=== PATIENT | female | born 1950 | race Caucasian/White ===

== ENCOUNTER 2019-11-24 19:26 | Inpatient (IN) | payer OTHER ==
[~2019-11-24] VITALS: Ht 162.6 cm; Wt 65.7 kg
[2019-11-24 19:26] VITALS: BP 99/42
[~2019-11-24 19:26] MED LIST: AVELOX400 MG PO; COLACE100 MG; DEPAKOTE500 MG; DESYREL50 MG; FLOVENT DISKUS50 MCG; HYPOTEARS EYE D15 ML; K-DUR 20 MEQ T20 MEQ; MAG-OX 400 TAB400 M1; MEDROL DOSPAK21 TA1; MONTELUKAST SOD10 MG; MUCUS RELIEF600 MG; NAMENDA 10 MG T10 MG; PREMARIN0.9 MG; QUETIAPINE FUM100 MG; QUETIAPINE FUM300 MG; RANITIDINE 150150 M1; SERTRALINE HCL100 MG PO; SMOOTHLAX17 GM; VICODIN 5-5001 EACH; ZYRTEC10 M2; [UNRECOGNIZED DRUG - OTHER]
[2019-11-24 20:03] LABS: MCH 34.9 pg (26.0-34.0); RBC 2.82 mil/uL (4.20-5.00)
[2019-11-24 20:04] LABS: CALCIUM 8.2 mg/dL (8.5-10.1); HEMATOCRIT 29.4 % (37.0-47.0); HEMOGLOBIN 9.9 gm/dL (12.0-15.0); MCHC 33.5 g/dL (28.0-37.0); MCV 104.2 fL (80.0-100.0); POTASSIUM 3.5 mmol/L (3.5-5.1); RDW 13.3 % (10.5-14.5); WBC 5.1 thou/uL (4.0-11.0)
[2019-11-24 20:10] LABS: ALBUMIN 2.2 g/dL (3.4-5.0); TOTAL BILIRUBIN 0.4 mg/dL (<0.1-1.0); TOTAL PROTEIN 6.5 g/dL (6.4-8.2)
[2019-11-24] MEDS ORDERED: FLOMAX0.4 MG PO (20:13)
[2019-11-24] MEDS ORDERED: XARELTO10 M1 PO (20:13)
[2019-11-24] MEDS ORDERED: FUROSEMIDE 20 M20 MG PO (20:13)
[2019-11-24] MEDS ORDERED: MILK OF MA400 MG/5 M PO (20:14)
[2019-11-24] MEDS ORDERED: TESSALON PERLE100 M1 PO (20:14)
[2019-11-24] MEDS ORDERED: ULTRAM 50MG TAB50 MG PO (20:14)
[2019-11-24] MEDS ORDERED: ONDANSETRON ODT4 MG PO (20:15)
[2019-11-24 20:41] LABS: ANISOCYTOSIS 1+; MACROCYTES 1+; POIKILOCYTOSIS 1+
[2019-11-24 20:42] LABS: PLATELET COUNT 36 thou/uL (150-400); PLATELET ESTIMATE MARKEDLY DECREASED
[2019-11-24 21:34] LABS: URINE BILIRUBIN NEGATIVE (Negative); URINE BLOOD TRACE (Negative); URINE CLARITY CLEAR; URINE COLOR YELLOW; URINE GLUCOSE-RANDOM* NEGATIVE (Negative); URINE KETONES NEGATIVE (Negative); URINE PROTEIN (DIPSTICK) TRACE (Negative)
[2019-11-24 21:37] LABS: URINE LEUKOCYTES-REFLEX 1+ (Negative); URINE NITRITE-REFLEX POSITIVE (Negative)
[2019-11-24 21:41] LABS: BE(vivo) 0.6 mmol/L (-2 to +3); HCO3 25.9 mmol/L (22.0-26.0); PCO2 44.4 mmHg (35.0-45.0); PO2 69.3 mmHg (80.0-100.0); pH 7.383 (7.360-7.450); sO2 93.6 % (92.0-98.0)
[2019-11-24 22:03] LABS: BACTERIA-REFLEX >30 Many /HPF (None Seen); CASTS None Seen /LPF (None Seen); CRYSTALS None Seen /LPF (None Seen); SQUAMOUS 0-3 Few /LPF (0-3); TRANSITIONAL EPITHEL CELL 0-3 Few /LPF (None Seen); URINE RBC 0-2 Rare /HPF (0-2); URINE WBC-REFLEX 6-15 Few /HPF (0-5)
[2019-11-24 23:06] VITALS: BP 100/53
[2019-11-24 23:31] VITALS: BP 103/60
[2019-11-24] MEDS ORDERED: SEROQUEL XR 30300 M1 PO (23:40)
[2019-11-25 04:56] VITALS: BP 90/47
[2019-11-25 05:33] LABS: HEMATOCRIT 30.5 % (37.0-47.0); RBC 2.85 mil/uL (4.20-5.00)
[2019-11-25 05:34] LABS: HEMOGLOBIN 9.9 gm/dL (12.0-15.0); MCHC 32.6 g/dL (28.0-37.0); MCV 107.3 fL (80.0-100.0); RDW 13.7 % (10.5-14.5); WBC 4.7 thou/uL (4.0-11.0)
[2019-11-25 06:01] LABS: CALCIUM 7.9 mg/dL (8.5-10.1); CREATININE 0.8 mg/dL (0.6-1.0); POTASSIUM 3.5 mmol/L (3.5-5.1)
--- NOTE | 2019-11-25 06:09 | NUR ---
PATIENTS CARES WERE ASSUMED ON ARRIVAL FROM THE ED. PATIENT WAS ASSESSED AND MEDS WERE PASSED. PATIENT IS POSITIVE FOR INFLUENZA A AND IS IN DROPPLET PRECAUTION. PATIENT WAS ADMITTED AND MED REC CHECKED. HOURLY ROUNDS WERE DONE. THE BED IS IN A LOW AND LOCKED POSITION
--- NOTE | 2019-11-25 08:21 | EKG ---
[facility] [address] [place] [address] ELECTROCARDIOGRAM REPORT Name: TONY SCHWARTZ Room #: 216-P ADM IN M.R.#: [id number] Admission: 11/24/19 Attend Phys: Manuel Steward MD Discharge: Date of : 54 Report #: [id number] THIS REPORT FOR: cc: Rob Boles MD, Srinath MD Couchonnal, Luis F. MD ~ THIS REPORT FOR: //name// [facility] ED Test Date: 2019-11-24 Test Time: 19:31:54 Pat Name: TONY SCHWARTZ Department: Room: 216 Gender: F [employer] Manager: TSERING : 1950 Requested By: Raulito Armstrong Order Number: [id number] MD: Joseph Valero Measurements Intervals [place] Rate: 81 P: 61 WV: 120 QRS: 62 QRSD: 108 T: 38 QT: 490 QTc: 569 Interpretive Statements Sinus rhythm Low voltage, extremity leads Compared to ECG 07/12/2012 21:31:37 Low QRS voltage now present Sinus tachycardia no longer present Electronically Signed On 11-25-2019 8:20:05 TOMATO GRADER by Joseph Valero [email or web address] <ELECTRONICALLY SIGNED> By: Joseph Valero MD 11/25/19819 30 30 Joseph Valero MD /EPI
[2019-11-25 08:50] VITALS: BP 84/45
[2019-11-25 12:19] VITALS: BP 82/39
[2019-11-25 16:14] VITALS: BP 107/46
--- NOTE | 2019-11-25 17:53 | NUR ---
ASSUMED CARE AT SHIFT CHANGE, ALERT AND ORIENTED X4. BP 82-107/39-46 DR COPPOLA NOTIFIED AND NEW ORDERS RECEIVED. PRESSURE ULCER ON SACRUM, AND ABRASIONS ON LT LEG AND LT ELBOW, PICTURES TAKEN AND WOUND CARE CONSULTED. Q2 POSITONED FOR COMFORT AND NEEDED. AND WILL CONTINUE WITH POC.
[2019-11-25 19:48] VITALS: BP 91/42
[2019-11-26 01:07] VITALS: BP 90/44
[2019-11-26 03:29] VITALS: BP 98/49
--- NOTE | 2019-11-26 05:33 | NUR ---
PATIENTS CARES WERE ASSUMED AT SHIFT CHANGE. PATIENT WAS ASSESSED AND MEDS WERE PASSED. PATIENT WAS WASHED UP FOR BED. EXTERNAL CATH IS IN PLACE. HOURLY ROUNDS WERE DONE. THE BED IS IN A LOW AND LOCKED POSITION. THE BED ALARM IS ON
[2019-11-26 08:19] VITALS: BP 96/43
--- NOTE | 2019-11-26 10:07 | NUR ---
met with patient who is A/O she reports she resides at [facility]. She is in droplet precations for flu. Plan return to [facility]. [place] sales planner to update facility. Attempted to call hayes Hunt but voicemail not set up, left message with hayes Lopez.
[2019-11-26 11:05] VITALS: BP 119/61
--- NOTE | 2019-11-26 11:31 | HC ---
[facility] [address] [place] [address] CONSULTATION Name: TONY SCHWARTZ Room #: 216-P ADM IN M.R.#: [id number] Admission: 11/24/19 Attend Phys: Manuel Steward MD Discharge: Date of : 54 Report #: [id number] THIS REPORT FOR: cc: Rob Boles MD,Rob Blankenship,Phill Kelley MD ~ CC: Manuel Boles DATE OF SERVICE: 11/25/2019 CHIEF COMPLAINT: Sacral pressure ulceration. HISTORY OF PRESENT ILLNESS: This is a 69-year-old female patient with a history of dementia and COPD, who presented here from the [facility] for fever and acute mental status changes. She apparently also developed ulceration on her sacral region. I have been asked to see her with regard to wound care. The patient denies any specific pain or discomfort at this time. The patient cannot provide much information about herself. She is found to be positive for influenza A. PAST MEDICAL HISTORY: Positive for dementia, GERD, hypertension, anxiety, insomnia, depression, constipation, previous cholecystectomy, hyperlipidemia, hysterectomy, COPD, RAYSHAWN, schizophrenia, left femur fracture, cognitive communication deficits, hypothyroidism, hypokalemia, allergic rhinitis. SOCIAL HISTORY: Negative for alcohol or tobacco use. FAMILY HISTORY: Noncontributory. ALLERGIES: MORPHINE, PENICILLIN AND SULFA. MEDICATIONS: Include sertraline, quetiapine, divalproex, fluticasone, guaifenesin, magnesium oxide, memantine, cetirizine, docusate sodium, montelukast, polyethylene glycol, ranitidine, furosemide, Xarelto, tamsulosin, tramadol, Tessalon Perles, milk of magnesia, Zofran. REVIEW OF SYSTEMS: Not obtainable due to the patient's advanced dementia. PHYSICAL EXAMINATION: VITAL SIGNS: At this time include temperature 36.7, pulse 83, respiratory rate 20, blood pressure 107/46. GENERAL: This is a chronically ill-appearing female patient who appears to be in no distress. HEENT: Head normocephalic. Nose and throat are clear. NECK: Supple. [facility] [address] [place] [address] CONSULTATION Name: TONY SCHWARTZ Room #: 216-P ADM IN .R.#: [id number] Admission: 11/24/19 Attend Phys: Manuel Steward MD Discharge: Date of : 54 Report #: [id number] LUNGS: Diminished. HEART: Regular rate and rhythm. ABDOMEN: Soft, bowel sounds present. EXTREMITIES: The sacral region demonstrates stage 2 ulceration to the sacral gluteal region. No exposed deep structures. No infection noted. Lower extremities without clubbing or cyanosis. NEUROLOGIC: She is confused. She does have a symmetrical motor exam. LABORATORY DATA: Includes white blood cell count 4.7, hemoglobin 9.9. Sodium 142, potassium 3.5, chloride 106, CO2 of 29, BUN 13, creatinine 0.8, glucose of 69. Albumin is very low at 2.2. CLINICAL IMPRESSION: 1. Stage 2 sacral pressure ulceration. 2. Influenza A with hypoxia. 3. Urinary tract infection/sepsis. 4. Dementia. 5. Hypertension. 6. Chronic obstructive pulmonary disease. 7. Severe protein-calorie malnutrition. RECOMMENDATIONS: At this point in time, patient will be placed on low air loss mattress with q. 2 hour turning and positioning. Recommend zinc oxide barrier cream to the sacral region. She will continue current medications, will need ongoing nutritional support. I appreciate being asked to see her in consultation. <ELECTRONICALLY SIGNED> By: Phill Blankenship MD 11/26/19 1131 [id number] Phill Blankenship MD /nt
--- NOTE | 2019-11-26 14:41 | NUR ---
FAXED CLINICAL UPDATE TO [facility] SPOKE WITH NICOLE IN ADM SHE RECEIVED UPDATE. DP TO FOLLOW.
[2019-11-26 17:19] VITALS: BP 141/90
--- NOTE | 2019-11-26 19:52 | NUR ---
ASSUMED CARE AT SHIFT CHANGE, VSS AND AFEBRILE. PATINT STATED THAT SHE FEELS BETTER TODAY, AND PROGRESSING TOWARDS GOAL. Q2 POSITIONED FOR COMFORT AND NEEDED. AND WILL CONTINUE WITH POC.
[2019-11-26 20:30] VITALS: BP 117/58
--- NOTE | 2019-11-27 05:37 | NUR ---
PT TRANSFER FROM CCU. LYING IN BED. DENIES PAIN. RESTING COMFORTABLY. NO NEEDS VOICED. CALL LIGHT WITHIN REACH. FREQUENT OBSERVATION.
[2019-11-27 07:32] VITALS: BP 131/61
[2019-11-27] MEDS ORDERED: CIPRO500 M1 PO (12:47)
[2019-11-27] MEDS ORDERED: TAMIFLU75 MG PO (13:07)
--- NOTE | 2019-11-27 13:52 | NUR ---
PT DISCHARGING TODAY TO [facility] FAXED DC ORDERS/SUMMARY TO FACILITY SPOKE WITH NICOLE IN ADM SHE RECEIVED ORDERS AND HAS SET UP TRANSPORT BY [facility] FOR 1420. FAMILY NOTIFIED BY ENMA TRENT) OF DC AND TIME OF TRANSPORT. UNIT NOTIFIED AND CHART COPY PER US. RN TO CALL REPORT TO [phone].
--- NOTE | 2019-11-27 15:38 | NUR ---
ASSUMED CARE OF THE PT AT 0700. PAIN CONTROLLED BY PAIN MEDS, SEE EMAR. PT INCONTINENT OF BOWEL AND URINE, LINENS CHANGED. PT DISCHARGED TO [facility]. IV REMOVED, PAPERWORK SENT WITH PT. REPORT GIVEN TO NURSE AT THE FACILITY. R LEG IN IMMOBILIZER. R CHEST PORT INTACT, NOT REMOVED. FALL PRECAUTIONS WERE IN PLACE, BED IN THE LOWEST POSITION AND CALL LIGHT WAS WITHIN REACH. PT DISCHARGED.
== END 2019-11-27 15:58 | DRG 871 ==
LOC: ER 19:26 → EROBS 21:11 → 2N 21:11 → 4S 11-27 00:50
PROVIDERS: Emergency Medicine; ADMIT Hospitalist
DX: A41.9 Sepsis, unspecified organism (principal); G92 Toxic encephalopathy; E43 Unspecified severe protein-calorie malnutrition; N39.0 Urinary tract infection, site not specified; F03.90 Unspecified dementia, unspecified severity, without behavioral disturbance, psychotic disturbance, mood disturbance, and anxiety; F20.9 Schizophrenia, unspecified; K21.9 Gastro-esophageal reflux disease without esophagitis; I10 Essential (primary) hypertension; F41.9 Anxiety disorder, unspecified; F32.9 Major depressive disorder, single episode, unspecified; J10.1 Influenza due to other identified influenza virus with other respiratory manifestations; D53.9 Nutritional anemia, unspecified; R65.20 Severe sepsis without septic shock; J44.9 Chronic obstructive pulmonary disease, unspecified; E78.5 Hyperlipidemia, unspecified; E03.9 Hypothyroidism, unspecified; J30.9 Allergic rhinitis, unspecified; L89.152 Pressure ulcer of sacral region, stage 2; I95.9 Hypotension, unspecified; G47.00 Insomnia, unspecified; B96.20 Unspecified Escherichia coli [E. coli] as the cause of diseases classified elsewhere; Z90.49 Acquired absence of other specified parts of digestive tract; Z68.24 Body mass index [BMI] 24.0-24.9, adult; Z90.710 Acquired absence of both cervix and uterus; Z79.2 Long term (current) use of antibiotics; Z79.899 Other long term (current) drug therapy; Z88.5 Allergy status to narcotic agent; Z88.0 Allergy status to penicillin; Z88.2 Allergy status to sulfonamides
CPT/HCPCS: 10081